=== PATIENT | male | born 1995 | race Hispanic/Latino ===

== ENCOUNTER 2017-07-23 02:23 | Emergency (ER) | payer SELFPAY ==
[~2017-07-23] VITALS: Ht 175.3 cm; Wt 68.0 kg
[2017-07-23 03:39] LABS: ALKALINE PHOSPHATASE 92 u/l (38-126); BILIRUBIN, TOTAL 0.4 mg/dL (0.0-1.4); BUN 6 mg/dL (9-20); BUN/CREATININE RATIO 6 (12-20 (CALC)); CARBON DIOXIDE 19 mmol/l (22-30); CHLORIDE 108 mmol/l (95-108); CREATININE 0.9 mg/dL (0.7-1.3); GFR > 60 ML/MIN (>=60 (CALC)); GFR FOR AFR.AMER. > 60 ML/MIN (>=60 (CALC)); POTASSIUM 4.1 mmol/l (3.5-5.1); SGOT/AST 34 u/l (17-59); SGPT/ALT 66 u/l (21-72); TOTAL PROTEIN 7.9 g/dL (6.3-8.2)
[2017-07-23 03:41] LABS: ALBUMIN 4.7 g/dL (3.2-5.0); ANION GAP 23 (6-22 (CALC)); SODIUM 146 mmol/l (137-146)
[2017-07-23 03:51] LABS: IMMATURE GRANULOCYTES 1.5 % (0.0-1.0); MEAN CELL VOLUME 85.8 fL CALC (80.0-100.0); MEAN CORPUSCULAR HGB 30.7 pG CALC (26.0-32.0); MEAN CORPUSCULAR HGB CONC 35.7 g/L CALC (32.0-36.0); NEUT# 6.3 thou/uL (1.82-7.42); RED BLOOD COUNT 5.15 mill/uL (4.70-6.10); RED CELL DISTRI WIDTH 12.4 % (11.5-15.5)
[2017-07-23 03:52] LABS: HEMATOCRIT 44.2 % (39.0-50.0); HEMOGLOBIN 15.8 g/dl (14.0-18.0)
[2017-07-23 04:17] VITALS: BP 131/100
== END 2017-07-23 04:17 | DRG 87 ==
LOC: ED 02:23
PROVIDERS: Emergency Medicine
DX: S02.0XXB Fracture of vault of skull, initial encounter for open fracture (principal); S06.360A Traumatic hemorrhage of cerebrum, unspecified, without loss of consciousness, initial encounter; F10.129 Alcohol abuse with intoxication, unspecified; W10.9XXA Fall (on) (from) unspecified stairs and steps, initial encounter; Y93.9 Activity, unspecified; Y92.009 Unspecified place in unspecified non-institutional (private) residence as the place of occurrence of the external cause